=== PATIENT | female | born 1990 | race Caucasian/White ===

== ENCOUNTER 2020-12-30 12:16 | Emergency (ER) | payer SELFPAY ==
[~2020-12-30] VITALS: Ht 167.6 cm; Wt 111.4 kg
[2020-12-30 12:21] VITALS: BP 118/87; Ht 167.6 cm; Wt 111.4 kg
[2020-12-30] MEDS ORDERED: TOPAMAX50 MG PO (13:23)
== END 2020-12-30 13:40 | disposition home or self-care (01) ==
LOC: D.ER 12:16
DX: G43.909 Migraine, unspecified, not intractable, without status migrainosus (principal)

== ENCOUNTER 2021-01-01 20:00 | Emergency (ER) | payer SELFPAY ==
[~2021-01-01] VITALS: Ht 167.6 cm; Wt 111.4 kg
[~2021-01-01 20:00] MED LIST: TOPAMAX50 MG PO
[2021-01-01 20:25] VITALS: Ht 167.6 cm; Wt 111.4 kg
[2021-01-01 21:37] LABS: BACTERIA FEW HPF (<MOD); BILIRUBIN NEGATIVE (NEGATIVE); KETONE NEGATIVE mg/dL (< 1+); NITRITE NEGATIVE (NEGATIVE); SQUAMOUS EPITHELIAL 9 HPF (0-4); UROBILINOGEN 2 mg/dL (< 2); WHITE CELLS - URINE 14 HPF (0-4)
[2021-01-01 21:38] LABS: HCG URINE NEGATIVE (NEGATIVE)
[2021-01-01] MEDS ORDERED: OMNICEF300 MG PO (21:44)
[2021-01-01 21:50] VITALS: BP 125/91
== END 2021-01-01 21:49 | disposition home or self-care (01) ==
LOC: D.ER 20:00
PROVIDERS: Family Medicine
DX: G43.909 Migraine, unspecified, not intractable, without status migrainosus (principal); N39.0 Urinary tract infection, site not specified